=== PATIENT | female | born 1965 | race Asian ===

== ENCOUNTER 2017-08-20 06:15 | Day surgery (SDC) | payer OTHER ==
[~2017-08-20] VITALS: Ht 160 cm; Wt 44.0 kg
[2017-08-20 07:00] VITALS: BP 128/72
[2017-08-20 09:48] VITALS: BP 110/67
== END 2017-08-20 09:40 | disposition home or self-care (01) ==
LOC: DS 06:15 → OR 07:30 → GI 07:30 → DS 09:40
PROVIDERS: Internal Medicine Gastroenterology
PROC: 0DB58ZX Excision of Esophagus, Via Natural or Artificial Opening Endoscopic, Diagnostic (ICD-10-PCS; principal; 2017-08-20 07:30)
PROC: 0DB68ZX Excision of Stomach, Via Natural or Artificial Opening Endoscopic, Diagnostic (ICD-10-PCS; 2017-08-20 07:30)
PROC: 0DJD8ZZ Inspection of Lower Intestinal Tract, Via Natural or Artificial Opening Endoscopic (ICD-10-PCS; 2017-08-20 07:30)
DX: Z12.11 Encounter for screening for malignant neoplasm of colon (principal); R10.13 Epigastric pain
CPT/HCPCS: 43235; 45378; J1200; J1610; J2250; J2310; J3010; J3490